=== PATIENT | female | born 1950 | race Caucasian/White ===

== ENCOUNTER → 2016-05-10 | Outpatient (CLI) | payer MEDICARE ==
[~2016-05-10] MED LIST: ADVAIR 2501 DISK W/D PO; ALBUTEROL 0.5ML INH; CYMBALTA30 M1; DIAZEPAM PO; FAMVIR250 MG PO; FLAGYL PO; HYDROCODON-ACE1 EACH PO; LEVAQUIN PO; LEVOTHROID200 MCG PO; LOMOTIL TABLET1 TAB PO; LORTAB 5/500 TA1 TA1 PO; MEDROL PO; NABUMETONE PO; PREDNISONE PO; PRILOSEC PO; ROBITUSSIN ALL118 ML PO; SPIRIVA18 MCG INH; SYNTHROID PO; THEO-DUR200 MG PO; THEOPHYLLIN; THYROID PO; TYLOX1 CAP 5/50 PO; VIBRAMYCIN100 M1 PO; WELCHOL625 MG PO; ZOFRAN PO; ZOLPIDEM TARTRA10 MG PO; [UNRECOGNIZED DRUG - REMARK]
--- NOTE | ~2016-05-10 | MY11 ---
[facility] A Service of [facility] & [facility] RADIOLOGY TEXT RESULTS PATIENT: NIDA CALDWELL LOCATION: [facility] : 46 UNIT #: [id number] AGE: [address]: Susan Blanton APRN SEX: F ORDER DR: [id number] [facility] [address] [place], [place] [address] [id number] O MR#: [id number] Acc #: [id number] NAME: NIDA CALDWELL. : 1950 SEX: F STUDY DATE/TIME: 05/10/2016 10:05 UNIT: [facility] ROOM: STUDY DESCRIPTION: MY Mammogram Screening Dig Jaime Attending Physician: Susan Blanton A.P.R.N. Ordering Physician: Susan Blanton A.P.R.N. Primary Care Physician: Susan Blanton A.P.R.N. MEDICAL IMAGING REPORT This report is preliminary unless electronic signature is present EXAM Digital screening mammogram, 05/10/2016 HISTORY 65-year-old woman positive family history, aunt age 44. Prior left breast biopsy. Annual screening. COMPARISON Mammograms date to 01/05/2005 with most recent screening comparison 06/30/2014, followup diagnostic left breast imaging 08/25/2014. FINDINGS Digital imaging of each breast was completed utilizing a two-view examination of each breast in craniocaudal and mediolateral-oblique projections. Review and interpretation of digital mammograms include a second review in conjunction with FDA-approved CAD device. There is a normal parenchymal presentation bilaterally consistent with the patient's age. There are no breast masses imaged and no parenchymal asymmetry is visualized. There are no suspicious microcalcifications and I see no focal architectural disturbance. IMPRESSION Negative screening digital mammogram. One-year followup recommended. Patients over the age of 40 are entered into a reminder system with target due date for the next mammogram. A result letter will also be sent to the patient. BIRADS: 1 Negative Dictated by... Luis Christianson M.D. [facility] A Service of [facility] & [facility] RADIOLOGY TEXT RESULTS PATIENT: NIDA CALDWELL LOCATION: [facility] : 46 UNIT #: [id number] AGE: [address]: Susan Blanton APRN SEX: F ORDER DR: THIS IS AN ELECTRONICALLY VERIFIED REPORT Luis Christianson M.D. at 05/10/2016 12:14 PM Reji TD: 05/10/2016 11:43 JOB #: [id number] MEDICAL IMAGING REPORT Page 1 of 1 COPY
== END | disposition home or self-care (01) ==
LOC: CWCC 09:25
DX: Z12.31 Encounter for screening mammogram for malignant neoplasm of breast (principal); Z80.3 Family history of malignant neoplasm of breast; Z98.890 Other specified postprocedural states
CPT/HCPCS: G0202